=== PATIENT | female | born 1955 | race American Indian/Alaskan Native ===

== ENCOUNTER 2016-09-27 15:18 | Outpatient (CLI) | payer OTHER ==
--- NOTE | 2016-09-27 16:21 | Mammography Report ---
BILATERAL DIGITAL SCREENING MAMMOGRAM with CAD: 09/27/16 15:18:00 CLINICAL: Routine screening. COMPARISON:09/07/15 FINDINGS: The breasts are almost entirely fatty. No mass, architectural distortion or suspicious calcifications. IMPRESSION: No mammographic evidence of malignancy. BI-RADS CATEGORY: 1 - - Negative RECOMMENDATION: Routine mammographic screening in one year. COMMENT: Patient follow-up letters are generated by our [employer] application.
== END 2016-09-27 15:19 | disposition home or self-care (01) ==
LOC: SPVWC 15:18
PROVIDERS: ATTEND Family Medicine
DX: Z12.31 Encounter for screening mammogram for malignant neoplasm of breast (principal)
CPT/HCPCS: 77067; G0202

== ENCOUNTER 2017-01-23 07:54 | Outpatient (CLI) | payer OTHER ==
--- NOTE | 2017-01-23 16:07 | Cat Scan Report ---
CT ABDOMEN AND PELVIS WITHOUT AND WITH CONTRAST: 01/23/17 07:54:00 CLINICAL: Abnormal liver function tests. COMPARISON: None TECHNIQUE: Volumetric acquisition and 1.25 millimeter scan reconstructions without contrast and after the uneventful intravenous injection of 100 cc Omnipaque 300. Post contrast scans of the liver were performed with a triple phase technique. Consent was obtained prior to the administration of contrast. Oral contrast was also given. FINDINGS: Abdomen: Clear lung bases. Normal liver and bile ducts status post cholecystectomy. Normal liver density and a liver mass. Normal stomach status post gastric bypass procedure. Normal pancreas, duodenum and spleen. Bilateral benign renal cysts. The largest on the right it measures 3 cm. The renal collecting systems and ureters are nondilated. Normal adrenal glands. Normal aorta and IVC. The small bowel is normal with a left lower quadrant small bowel anastomosis. Normal ascending, transverse and descending colon. The appendix is normal. No mass, lymphadenopathy or ascites. Pelvis: Normal urinary bladder and rectum. The uterus measures 8.5 x 4.6 8.0 cm. Normal ovaries. No adnexal mass or free fluid. Bone windows demonstrate no suspicious bone lesion. Degenerative disc disease with vacuum disc phenomenon at L4-5 and L5-S1. IMPRESSION:1. Normal liver. 2. Status post cholecystectomy. 3. Bilateral benign renal cysts. 4. Status post gastric bypass procedure. 5. Normal pelvis. 6. Lower lumbar degenerative disc disease.
== END 2017-01-23 07:55 | disposition home or self-care (01) ==
LOC: SPVIMAG 07:54
PROVIDERS: ATTEND Internal Medicine Gastroenterology
DX: N28.1 Cyst of kidney, acquired (principal); R94.5 Abnormal results of liver function studies; M51.37 Other intervertebral disc degeneration, lumbosacral region; Z90.49 Acquired absence of other specified parts of digestive tract
CPT/HCPCS: 74178; 82962; Q9967

== ENCOUNTER 2017-10-22 10:51 | Outpatient (CLI) | payer OTHER ==
--- NOTE | 2017-10-23 10:54 | Mammography Report ---
BONE DENSITY STUDY: Osteoporosis screening. DEFINITIONS: BMD = Bone Mineral Density T-score = BMD related to mean peak bone mass of young adult (mean expressed in Standard Deviation) Z-score = Age matched BMD expressed in SD World Health Organization (WHO) Diagnostic Criteria Normal T-score > -1 SD Osteopenia T-score between -1 and -2.4 SD Osteoporosis T-score -2.5 SD or below FINDINGS: The weighted average BMD of lumbar spine L1-L4 is 1.101 with a T-score of -0.4. The weighted average BMD of the left hip is 0.791 with a T-score of -1.5. When compared to prior exam in August 2015 the overall mineralization of the lumbar spine has not substantially changed nor has that of the hip however the femoral neck has shown improvement. IMPRESSION: The patient's average T-score is diagnostic for osteopenia and average relative risk for fracture. NOTE: BMD is not the only risk factor for fracture; also consider factors such as the patient's age, risk of falling, previous osteoporotic fracture, family history of osteoporotic fractures, current smoker, and low body weight. Phillips's triangle is a region of interest in femur, predominantly of trabecular bone. It is not a true anatomic site, and [facility] does not recommend its use clinically.
--- NOTE | 2017-10-23 10:56 | Mammography Report ---
BILATERAL MAMMOGRAM: FINDINGS: The breasts are almost entirely fat (<25% glandular). No mass, distortion, suspicious calcification, or skin change is seen. No significant change when compared to prior exams dating back to August 2015. CAD was utilized. IMPRESSION: Negative mammogram. There is no mammographic evidence of malignancy. RECOMMENDATION: Follow-up per ACS guidelines. BI-RADS CATEGORY: 1 = Negative ACR BI-RADS MAMMOGRAPHIC CODES: 0 = Needs additional imaging evaluation; 1 = Negative; 2 = Benign; 3 = Probably benign; 4 = Suspicious; 5 = Malignant; 6 = Known biopsy-proven malignancy COMMENT: 1. Dense breast tissue, i.e., adenosis, fibrocystic changes, etc., may obscure an underlying neoplasm. 2. Approximately 10% of cancers are not detected with mammography. 3. A negative mammography report should not delay biopsy if a clinically suspicious mass is present. COMMENT: Patient follow-up letters are generated in [employer].
== END 2017-10-22 10:52 | disposition home or self-care (01) ==
LOC: SPVWC 10:51
PROVIDERS: ATTEND Family Medicine
DX: Z12.31 Encounter for screening mammogram for malignant neoplasm of breast (principal); M85.88 Other specified disorders of bone density and structure, other site
CPT/HCPCS: 77067; 77080

== ENCOUNTER 2019-12-22 10:11 | Outpatient (CLI) | payer OTHER | END 2019-12-22 10:12 | disposition home or self-care (01) | LOC: SPVWC 10:11 | PROVIDERS: ATTEND Family Medicine | DX: Z12.31 Encounter for screening mammogram for malignant neoplasm of breast (principal) | CPT/HCPCS: 77067 ==

== ENCOUNTER 2021-01-31 08:01 | Outpatient (CLI) | payer MEDICARE ==
--- NOTE | 2021-01-31 10:33 | Mammography Report ---
BILATERAL DIGITAL SCREENING MAMMOGRAM WITH CAD INDICATION: Routine screening mammography. TECHNIQUE: Digital bilateral 2D mammography was obtained in the craniocaudal and mediolateral obliq ue projections. This examination was interpreted with the benefit of Computer-Aided Detection analysi s. COMPARISON: 12/22/2019, 11/03/2018, 10/22/2017. FINDINGS: Breast Density: The breasts are almost entirely fatty. No suspicious mass, microcalcifications, or architectural distortion. IMPRESSION: No evidence of breast malignancy. Recommend routine screening mammogram in one year. BI-RADS Category 1: Negative. No mammographic evidence of malignancy. Recommend routine screening m ammography in one year. A "normal" or negative report should not discourage follow up or biopsy of a clinically significant f inding. A written summary of these findings will be mailed to the patient. The patient will be entered into a mammography reporting system which will generate a reminder letter for the patient's next appointmen t at the appropriate interval. The [employer] recommends yearly mammograms starting at age 40 and continuing as l rajni as a woman is in good health. Breast MRI is recommended for women with an approximate 20-25% or greater lifetime risk of breast cancer, including women with a strong family history of breast or ova glen cancer or who have been treated for Hodgkin's disease. Screening Signer Name: Cory Medrano MD Signed: 01/31/2021 10:28 AM Workstation Name: [id number]
== END 2021-01-31 08:02 | disposition home or self-care (01) ==
LOC: SPVWC 08:01
PROVIDERS: ATTEND Family Medicine
DX: Z12.31 Encounter for screening mammogram for malignant neoplasm of breast (principal); N64.89 Other specified disorders of breast
CPT/HCPCS: 77067

== ENCOUNTER 2022-03-20 14:05 | Outpatient (CLI) | payer MEDICARE ==
--- NOTE | 2022-03-21 11:24 | Mammography Report ---
DIGITAL SCREENING MAMMOGRAM WITH CAD, 03/20/2022 CLINICAL INFORMATION / INDICATION: Routine screening mammography. TECHNIQUE: Digital bilateral 2D mammography was obtained in the craniocaudal and mediolateral oblique projections. This examination was interpreted with the benefit of Computer-Aided Detection analysis. COMPARISON: 01/31/2021 FINDINGS: Breast Density: The breasts are almost entirely fatty. No dominant mass, suspicious calcifications, or architectural distortion in either breast. No suspicious change since the prior exam. IMPRESSION: No mammographic evidence of malignancy. Follow up recommendation: Routine yearly screening mammogram. BI-RADS Category 1: NEGATIVE A "normal" or negative report should not discourage follow up or biopsy of a clinically significant f inding. A written summary of these findings will be mailed to the patient. The patient will be entered into a mammography reporting system which will generate a reminder letter for the patient's next appointmen t at the appropriate interval. The [employer] recommends yearly mammograms starting at age 40 and continuing as l rajni as a woman is in good health. Breast MRI is recommended for women with an approximate 20-25% or greater lifetime risk of breast cancer, including women with a strong family history of breast or ova glen cancer or who have been treated for Hodgkin's disease. Signer Name: Hadley Reynolds MD Signed: 03/21/2022 11:20 AM Workstation Name: [id number]
== END 2022-03-20 14:06 | disposition home or self-care (01) ==
LOC: SPVWC 14:05
PROVIDERS: ATTEND Family Medicine
DX: Z12.31 Encounter for screening mammogram for malignant neoplasm of breast (principal)
CPT/HCPCS: 77067